=== PATIENT | female | born 1980 | race American Indian/Alaskan Native ===

== ENCOUNTER 2017-12-31 16:18 | Emergency (ER) | payer BC ==
[2017-12-31] MEDS ORDERED: NACL 0.9% 1000 ML 1,000 ML IV ONE (16:37)
[2017-12-31 18:04] LABS: Bilirubin,Urine NEG (Negative); Color,Urine Yellow (Yellow)
[2017-12-31 18:05] LABS: Blood,Urine NEG (Negative); Protein,Urine <15 mg/dL mg/dL (Negative); Urobilinogen,Urine < 2.0 mg/dL (<2.0); WBC,Urine < 1.0 /HPF (0.0-6.0)
[2017-12-31 18:21] LABS: HCG Qualitative,Urine Negative (Negative)
[2017-12-31 18:39] LABS: Alanine Aminotransferase 21 units/L (7-56); Albumin 3.4 g/dL (3.9-5); BUN/Creatinine Ratio 11; Blood Urea Nitrogen 11 mg/dL (7-17); Calcium 8.5 mg/dL (8.4-10.2); Hemolysis Index 6; Lipase 25 units/L (13-60)
[2017-12-31 18:59] LABS: Basophils # (Auto) 0.1 K/mm3 (0.0-0.1); Eosinophils # (Auto) 0.2 K/mm3 (0.0-0.4); Eosinophils % (Auto) 2.8 % (0.0-4.3); Hematocrit 38.6 % (30.3-42.9); Hemoglobin 13.2 gm/dl (10.1-14.3); Lymphocytes # (Auto) 2.2 K/mm3 (1.2-5.4); Lymphocytes % (Auto) 31.1 % (13.4-35.0); Mean Corpuscular HGB Conc 34 % (30-34); Mean Corpuscular Hemoglobin 32 pg (28-32); Mean Corpuscular Volume 94 fl (79-97); Monocytes # (Auto) 0.5 K/mm3 (0.0-0.8); Platelet Count 373 K/mm3 (140-440); Red Blood Count 4.13 M/mm3 (3.65-5.03); Red Cell Distribution Width 13.8 % (13.2-15.2)
[2017-12-31] MEDS ORDERED: BENTYL IM ONE (20:16)
[2017-12-31] MEDS ORDERED: ATIVAN IV ONE (20:21)
--- NOTE | 2017-12-31 20:22 | Emergency Department Report ---
HPI - General Chief Complaint: Abdominal Pain Time Seen by Provider: 12/31/17 19:44 - HPI HPI: Room 8 The patient is a 37-year-old female presenting with a chief complaint of abdominal pain constipation. The patient states she has a history of irritable bowel syndrome. The patient states she underwent a colonoscopy on 12/12/2017 and an EGD on 12/19/2017. The patient states she was started on Viberzi has been taking it for the past 6 days. The patient states she has not had a solid bowel movement in the past 6 days. The patient states she has passed a small amount of liquid despite using Dulcolax and magnesium citrate. Patient admits to nausea and says some vomiting comes up in her throat occasionally but not enough to expectorate. Patient denies any history of fever. The patient states she contacted her lace [facility] office today and was instructed to come to the emergency department. Patient denies dysuria. Location: Gastrointestinal system Duration: [See above] Quality: Cramping Severity: Moderate Modifying factors: [see above] Context: [see above] Mode of transportation: [not driving] ED Past Medical Hx - Past Medical History Additional medical history: IBS, diverticulitis, EGD/colonoscopy - Surgical History Additional Surgical History: tubiligaiton,partial hysteretomy, fibroids, ovarian cyst - Social History Smoking Status: Never Smoker Substance Use Type: None (denies illicit drug use), Alcohol (rarely) - Medications Home Medications: Home Medications Medication Instructions Recorded Confirmed Last Taken Type Polyethylene Glycol/Elect 4,000 ml PO QDAY #1 bottle 01/01/18 Unknown Rx [Golytely] ED Review of Systems ROS: Stated complaint: ABD PAIN/CONSTIPATION Other details as noted in HPI Constitutional: denies: fever Eyes: denies: eye pain ENT: denies: throat pain Respiratory: no symptoms reported Cardiovascular: denies: chest pain Endocrine: no symptoms reported Gastrointestinal: abdominal pain, nausea, constipation. denies: vomiting Genitourinary: denies: dysuria Musculoskeletal: back pain Neurological: denies: headache Physical Exam - Physical Exam Vital Signs: Vital Signs 12/31/17 16:31 Temperature 98.4 F Pulse Rate 79 Respiratory 18 Rate Blood Pressure 114/73 O2 Sat by Pulse 98 Oximetry Physical Exam: GENERAL: The patient is well-developed well-nourished female lying on stretcher not appearing to be in acute distress. [] HEENT: Normocephalic. Atraumatic. Extraocular motions are intact. Patient has moist mucous membranes. NECK: Supple. Trachea midline CHEST/LUNGS: Clear to auscultation. There is no respiratory distress noted. HEART/CARDIOVASCULAR: Regular. There is no tachycardia. There is no gallop rub or murmur. ABDOMEN: Abdomen is soft, with diffuse discomfort to palpation greatest on the right side. Patient has normal bowel sounds. There is no abdominal distention. SKIN: There is no rash. There is no edema. There is no diaphoresis. NEURO: The patient is awake, alert, and oriented. The patient is cooperative. The patient has normal speech MUSCULOSKELETAL: There is no evidence of acute injury. ED Course Vital Signs 12/31/17 16:31 Temperature 98.4 F Pulse Rate 79 Respiratory 18 Rate Blood Pressure 114/73 O2 Sat by Pulse 98 Oximetry - Reevaluation(s) Reevaluation #1: 01/01/18 01:27 Patient had a moderate size BM after enema. She states she feels improved. Patient would like to receive the remainder of the enema prior to going home ED Medical Decision Making - Lab Data Result diagrams: 12/31/17 16:48 12/31/17 16:48 Laboratory Tests 12/31/17 12/31/17 12/31/17 16:48 16:48 17:17 WBC 6.9 RBC 4.13 Hgb 13.2 Hct 38.6 MCV 94 MCH 32 MCHC 34 RDW 13.8 Plt Count 373 Lymph % (Auto) 31.1 [place] % (Auto) 7.0 Eos % (Auto) 2.8 Baso % (Auto) Tobacco Blender Lymph # 2.2 [place] # 0.5 Eos # 0.2 Baso # 0.1 Seg Neutrophils % 58.1 Seg Neutrophils # 4.0 Sodium 137 Potassium 3.9 Chloride 104.0 Carbon Dioxide 24 Anion Gap 13 BUN 11 Creatinine 1.0 Estimated GFR > 60 BUN/Creatinine Ratio 11 Glucose 110 H Calcium 8.5 Total Bilirubin 0.20 AST 21 ALT 21 Alkaline Phosphatase 54 Total Protein 6.8 Albumin 3.4 L Albumin/Globulin Ratio 1.0 Lipase 25 Urine Color Yellow Urine Turbidity Clear Urine pH 7.0 Ur Specific [place] 1.010 Urine Protein <15 mg/dl Urine Glucose (UA) Neg Urine Ketones Neg Urine Blood Neg Urine Nitrite Neg Urine Bilirubin Neg Urine Urobilinogen < 2.0 Ur Leukocyte Esterase Neg Urine WBC (Auto) < 1.0 Urine RBC (Auto) 2.0 U Epithel Cells (Auto) 4.0 Urine HCG, Qual Negative - Radiology Data Radiology results: report reviewed (CT abdomen and pelvis), image reviewed (CT abdomen and pelvis) [facility] [address] [id number] Cat Scan Report Signed Patient: INOCENCIA HERRING MR#: [id number] : Acct:[id number] Age/Sex: 37 / F ADM Date: 12/31/17 Loc: ED Attending Dr: Ordering Physician: DAT CERDA MD Date of Service: 12/31/17 Procedure(s): CT abdomen pelvis w con Accession Number(s): [id number] cc: DAT CERDA MD FINAL REPORT EXAM: CT ABDOMEN PELVIS W CON HISTORY: unable to pass solid stool, abdominal pain TECHNIQUE: CT abdomen and pelvis with intravenous contrast PRIORS : None. FINDINGS: No acute abnormality identified in the lung bases. No focal abnormality identified within the liver parenchyma. The spleen demonstrates normal size and attenuation. No pancreatic abnormalities seen. The kidneys demonstrate symmetric contrast enhancement. No evidence of hydronephrosis. The adrenal glands are unremarkable Abdominal aorta is normal in caliber. No pathologically enlarged lymph nodes are identified. No signs of free fluid or free air No evidence of small bowel dilatation. Colon is nondistended. No pericolonic inflammatory change. There is a right adnexal cystic structure measuring 4.6 x 3.9 x 5.6 centimeters. It appears fluid density. There is a hyperdense focus along the superior margin which has a linear appearance. Could reflect a retained tubal ligation clip although no additional metallic density foci are observed. The superior wall of the cyst has a thickened appearance. There is no fat density present centrally. Urinary bladder is unremarkable. IMPRESSION: Right adnexal cyst 5.6 centimeters. Dense focus along its superior margin possibly retained tubal ligation clip please correlate with patient history. Otherwise negative study Transcribed By: CARMELA Dictated By: MARTIN SHAH MD Electronically Authenticated By: MARTIN SHAH MD Signed Date/Time: 12/31/172220 DD/ 20 TD/TT: 12/31/172220 - Differential Diagnosis constipation, fecal impaction, small bowel destruction, partial small bowel Critical care attestation.: If time is entered above; I have spent that time in minutes in the direct care of this critically ill patient, excluding procedure time. ED Disposition Clinical Impression: Acute abdominal pain, Constipation, Ovarian cyst Disposition: DC-01 TO HOME OR SELFCARE Is pt being admited?: No Does the pt Need Aspirin: No Condition: Stable Instructions: Abdominal Pain (ED) Additional Instructions: Return to the emergency department immediately should you develop worsening symptoms, fever, inability to tolerate food or liquid or any other concerns. Prescriptions: Polyethylene Glycol/Elect [Golytely] 4,000 ml PO QDAY #1 bottle Referrals: PRIMARY CARE, [Primary Care Provider] - 3-[address] Hagen, gastroenterology [Other] - 2-3 Days Time of Disposition: 01:43 (DC after enema)
--- NOTE | 2017-12-31 22:22 | Cat Scan Report ---
FINAL REPORT EXAM: CT ABDOMEN PELVIS W CON HISTORY: unable to pass solid stool, abdominal pain TECHNIQUE: CT abdomen and pelvis with intravenous contrast PRIORS: None. FINDINGS: No acute abnormality identified in the lung bases. No focal abnormality identified within the liver parenchyma. The spleen demonstrates normal size and attenuation. No pancreatic abnormalities seen. The kidneys demonstrate symmetric contrast enhancement. No evidence of hydronephrosis. The adrenal glands are unremarkable Abdominal aorta is normal in caliber. No pathologically enlarged lymph nodes are identified. No signs of free fluid or free air No evidence of small bowel dilatation. Colon is nondistended. No pericolonic inflammatory change. There is a right adnexal cystic structure measuring 4.6 x 3.9 x 5.6 centimeters. It appears fluid density. There is a hyperdense focus along the superior margin which has a linear appearance. Could reflect a retained tubal ligation clip although no additional metallic density foci are observed. The superior wall of the cyst has a thickened appearance. There is no fat density present centrally. Urinary bladder is unremarkable. IMPRESSION: Right adnexal cyst 5.6 centimeters. Dense focus along its superior margin possibly retained tubal ligation clip please correlate with patient history. Otherwise negative study
[2017-12-31] MEDS ORDERED: CEPHULAC PO ONE (22:42)
[2018-01-01] MEDS ORDERED: ZOFRAN IV ONE (00:02)
[2018-01-01 02:22] VITALS: BP 130/79
== END 2018-01-01 02:20 | disposition home or self-care (01) ==
LOC: ED 16:18
DX: K59.00 Constipation, unspecified (principal); N83.209 Unspecified ovarian cyst, unspecified side; Z98.51 Tubal ligation status; Z90.711 Acquired absence of uterus with remaining cervical stump; Z88.5 Allergy status to narcotic agent
CPT/HCPCS: 36415; 74177; 80053; 81001; 81025; 83690; 85025; 96361; 96372; 96374; 99284; J0500; J2405; J7030; Q9967

== ENCOUNTER 2018-08-12 11:18 | Outpatient (CLI) | payer BC ==
--- NOTE | 2018-08-12 12:30 | Mammography Report ---
Bilateral mammogram: No previous studies available. CAD study utilized. Findings: Predominance of adipose tissue bilaterally. Focal asymmetry outer and inner left breast seen on CC view and a focal asymmetry upper posterior left breast. Focal asymmetry inner right breast. No microcalcifications appear normal axilla. Impression: Focal asymmetry right and left breasts. Recommend spot compression and sonographic examination. BI-RADS CATEGORY: 0 = Needs additional imaging evaluation ACR BI-RADS MAMMOGRAPHIC CODES: 0 = Needs additional imaging evaluation; 1 = Negative; 2 = Benign; 3 = Probably benign; 4 = Suspicious; 5 = Malignant; 6 = Known biopsy-proven malignancy COMMENT: 1. Dense breast tissue, i.e., adenosis, fibrocystic changes, etc., may obscure an underlying neoplasm. 2. Approximately 10% of cancers are not detected with mammography. 3. A negative mammography report should not delay biopsy if a clinically suspicious mass is present. COMMENT: Patient follow-up letters are generated in [employer].
== END 2018-08-12 11:19 | disposition home or self-care (01) ==
LOC: SPVWC 11:18
PROVIDERS: ATTEND Internal Medicine
DX: Z12.31 Encounter for screening mammogram for malignant neoplasm of breast (principal)
CPT/HCPCS: 77067

== ENCOUNTER 2018-09-05 10:25 | Outpatient (CLI) | payer BC ==
--- NOTE | 2018-09-05 11:35 | Mammography Report ---
LEFT DIGITAL DIAGNOSTIC MAMMOGRAM : 09/05/18 10:25:00 CLINICAL: Recalled for bilateral asymmetries. In the meantime, we discovered that have a previous mammogram from 01/11/17 with a different medical record number. COMPARISON:08/12/18 and 01/11/17 FINDINGS: The right inner asymmetry on the CC view is unchanged compared to the 2017 mammogram. Left asymmetries are new. Additional left mammographic views were performed and are negative. IMPRESSION: No mammographic evidence of malignancy. BI-RADS CATEGORY: 1 -- Negative RECOMMENDATION: Routine mammographic screening in one year. COMMENT: 1. Dense breast tissue, i.e., adenosis, fibrocystic changes, etc., may obscure an underlying neoplasm. 2. Approximately 10% of cancers are not detected with mammography. 3. A negative mammography report should not delay biopsy if a clinically suspicious mass is present. COMMENT: Patient follow-up letters are generated via our [employer] application.
== END 2018-09-05 10:26 | disposition home or self-care (01) ==
LOC: MAMMO 10:25
PROVIDERS: ATTEND Internal Medicine
DX: R92.2 Inconclusive mammogram (principal)